=== PATIENT | male | born 1950 | race Two or more races ===

== ENCOUNTER 2023-10-26 08:42 | Emergency (ER) | payer OTHER ==
[~2023-10-26] VITALS: Ht 172.7 cm; Wt 74.8 kg
[2023-10-26] MEDS ORDERED: ZESTRIL20 MG PO (09:08)
[2023-10-26] MEDS ORDERED: PRAVASTATIN SOD40 MG PO (09:08)
[2023-10-26 10:13] LABS: HEMATOCRIT 41.1 % (39.0-48.0); HEMOGLOBIN 13.8 g/dL (13-16.00); MEAN CELL VOLUME 90.8 fL (80.0-100.00); MEAN CORPUSCULAR HEMOGLOBIN 30.5 pg (27.00-32.0); MEAN CORPUSCULAR HGB CONC 33.6 g/dl (32.0-36.0); PLATELET COUNT 275 K/uL (150-450); RED BLOOD COUNT 4.53 M/uL (4.00-6.00); RED CELL DISTRIBUTION WIDTH 12.6 % (11.5-14.5)
[2023-10-26 10:36] LABS: CALCIUM 9.5 mg/dL (8.5-10.1); CREATININE SERUM 1.63 mg/dL (0.70-1.30); GFR 41.68; POTASSIUM 4.54 mEq/L (3.5-5.1)
[2023-10-26 10:59] LABS: URINE APPEARANCE Clear; URINE BILIRRUBIN Negative (NEGATIVE); URINE BLOOD Small; URINE COLOR Yellow; URINE GLUCOSE Negative (NEGATIVE); URINE LEUKOCYTE Negative; URINE NITRATE Negative; URINE PROTEIN Negative (NEGATIVE); URINE UROBILINOGEN 0.2 E.U./dl
[2023-10-26 11:03] LABS: URINE BACTERIA 7.5 uL (0.0-1933); URINE WBC 2.4 uL (0.0-23.2)
[2023-10-26 11:42] LABS: URINE EPITHELIAL CELLS 0.7 uL (0.0-38.8)
== END 2023-10-26 16:12 | disposition home or self-care (01) ==
LOC: ER 08:43
PROVIDERS: Emergency Medicine
DX: R10.9 Unspecified abdominal pain (principal); Z88.0 Allergy status to penicillin; K40.20 Bilateral inguinal hernia, without obstruction or gangrene, not specified as recurrent

== ENCOUNTER 2023-12-14 07:08 | Day surgery (SDC) | payer OTHER ==
[2023-12-08 09:58] LABS: HEMOGLOBIN 14.4 g/dL (13-16.00); MEAN CELL VOLUME 90.2 fL (80.0-100.00); MEAN CORPUSCULAR HEMOGLOBIN 30.3 pg (27.00-32.0); MEAN CORPUSCULAR HGB CONC 33.6 g/dl (32.0-36.0); PH,URINE 5.5 (5.0-8.0); PLATELET COUNT 246 K/uL (150-450); RED BLOOD COUNT 4.77 M/uL (4.00-6.00); RED CELL DISTRIBUTION WIDTH 12.8 % (11.5-14.5); URINE APPEARANCE Clear; URINE BILIRRUBIN Negative (NEGATIVE); URINE BLOOD Negative; URINE COLOR Yellow; URINE GLUCOSE Negative (NEGATIVE); URINE LEUKOCYTE Negative; URINE NITRATE Negative; URINE PROTEIN Negative (NEGATIVE); URINE UROBILINOGEN 0.2 E.U./dl
[2023-12-08 09:59] LABS: URINE WBC 2.7 uL (0.0-23.2)
[2023-12-08 10:00] LABS: URINE BACTERIA 2.5 uL (0.0-1933); URINE EPITHELIAL CELLS 0.7 uL (0.0-38.8); URINE RBC 1.8 uL (0.0-20.8)
[2023-12-08 10:18] LABS: INR 0.97; PARTIAL THROMBOPLASTIN TIME 28.4 SECONDS (22.0-34.0); PROTHROMBIN TIME 10.2 SECONDS (9.0-11.5)
[2023-12-08 10:21] LABS: ALBUMIN 3.8 gm/dL (3.4-5.0); BILIRUBIN TOTAL 0.7 mg/dL (0.3-1.2); CALCIUM 9.8 mg/dL (8.5-10.1); CREATININE SERUM 1.75 mg/dL (0.70-1.30); GFR 38.4; GLOBULINA 3.1 G/DL (2.4-3.5); POTASSIUM 4.65 mEq/L (3.5-5.1); TOTAL PROTEIN 6.9 gm/dL (6.4-8.2)
[~2023-12-14 07:08] MED LIST: PRAVASTATIN SOD40 MG PO; ZESTRIL20 MG PO
[2023-12-14] MEDS ORDERED: TRAMADOL HCL50 MG PO (12:26)
[2023-12-14] MEDS ORDERED: TYLENOL ARTHRI650 MG PO (12:26)
[2023-12-14] MEDS ORDERED: MIRALAX17 GM PO (12:26)
== END 2023-12-14 17:55 | disposition home or self-care (01) ==
LOC: CIR.AMB 07:08
PROVIDERS: ATTEND Surgery
DX: K40.30 Unilateral inguinal hernia, with obstruction, without gangrene, not specified as recurrent (principal); I10 Essential (primary) hypertension; Z88.0 Allergy status to penicillin; Z20.822 Contact with and (suspected) exposure to COVID-19
CPT/HCPCS: 49507; C1781